=== PATIENT | female | born 1940 | race Caucasian/White ===

== ENCOUNTER 2017-07-03 00:42 | Emergency (ER) | payer BC ==
[2017-07-03] MEDS: traMADol 50 MG TAB PO (03:29)
== END 2017-07-03 05:28 | disposition home or self-care (01) ==
LOC: FTE 00:42
DX: S20.211A Contusion of right front wall of thorax, initial encounter (principal); S80.01XA Contusion of right knee, initial encounter; S80.02XA Contusion of left knee, initial encounter; I10 Essential (primary) hypertension; W10.9XXA Fall (on) (from) unspecified stairs and steps, initial encounter; Y92.008 Other place in unspecified non-institutional (private) residence as the place of occurrence of the external cause; Z79.82 Long term (current) use of aspirin; Z96.652 Presence of left artificial knee joint
CPT/HCPCS: 71046; 71100; 73562-50; 99284-25